=== PATIENT | female | born 1995 | race Caucasian/White ===

== ENCOUNTER 2017-06-22 03:40 | Emergency (ER) | payer SELFPAY ==
[2017-06-22 03:45] VITALS: BP 130/61
--- NOTE | 2017-06-22 04:23 | ER Document Report ---
ED ENT - General Chief Complaint: Ear Pain Stated Complaint: EAR PAIN Time Seen by Provider: 06/22/17 04:15 Notes: The patient is a 21-year-old female who presents with 3 days of left ear pain that feels like a throbbing sensation. She tried OTC swimmer's eardrops from [employer] without much relief of her symptoms. Patient is having mild drainage and worsening pain when she moves her left pinna. TRAVEL OUTSIDE OF THE [place] IN LAST 30 DAYS: No - Related Data Allergies/Adverse Reactions: No Known Allergies Allergy (Unverified 06/22/17 03:41) Past Medical History - General Information source: Patient - Social History Smoking Status: Unknown if Ever Smoked Family History: Reviewed & Not Pertinent Review of Systems - Review of Systems Constitutional: denies: Chills, Fever EENT: Ear pain. denies: Nose congestion, Sinus pressure Cardiovascular: denies: Chest pain, Palpitations Respiratory: denies: Cough, Short of breath Gastrointestinal: denies: Abdominal pain, Vomiting Physical Exam - Vital signs Vitals: Temp Pulse Resp BP Pulse Ox 98.5 F 106 H 20 130/61 H 99 06/22/17 03:42 06/22/17 03:42 06/22/17 03:42 06/22/17 03:42 06/22/17 03:42 - General General appearance: Appears well In distress: None - HEENT Ears: Pinna tenderness - left External canal: Swollen Tympanic membrane: Normal Sinus: Normal Nasal: Normal Mouth/Lips: Normal - Respiratory Respiratory status: No respiratory distress Breath sounds: Normal - Cardiovascular Rhythm: Regular Heart sounds: Normal auscultation - Neurological Neuro grossly intact: Yes - Skin Skin Temperature: Warm Course - Re-evaluation Re-evalutation: Patient with evidence of left otitis externa. No evidence of malignant otitis externa. Will begin ofloxacin drops, anti-inflammatories and have patient follow with her primary care physician and ENT as needed. - Vital Signs Vital signs: Temp Pulse Resp BP Pulse Ox 98.5 F 106 H 20 130/61 H 99 06/22/17 03:42 06/22/17 03:42 06/22/17 03:42 06/22/17 03:42 06/22/17 03:42 Discharge - Discharge Clinical Impression: Otitis externa Qualifiers: Otitis externa type: unspecified type Chronicity: acute Laterality: left Qualified Code(s): H60.502 - Unspecified acute noninfective otitis externa, left ear Condition: Stable Disposition: HOME, SELF-CARE Additional Instructions: Otitis Externa You have otitis externa -- an infection of the outer ear canal. This can be very painful. It's sometimes called "swimmer's ear," because it often occurs after prolonged water exposure. Many things, such as earwax and dirt in the ear, can contribute to it. The usual treatment is antibiotic/antiinflammatory ear drops. Occasionally , a wick will be placed in the ear to draw in the medicine. If the infection is severe, an oral antibiotic may be prescribed. Pain medication is often needed. Avoid getting water in the ear. Outer ear infections often take longer to heal than you might expect. Some tenderness and ache in the ear may persist for about two weeks. See your physician if you fail to improve as expected. Call the doctor at once if you develop fever, increasing swelling (particularly if it makes your ear "poke out"), severe headache, stiff neck, or decreased hearing. Prescriptions: Ofloxacin [Floxin] 10 drop LFT_EAR DAILY 7 Days drops Forms: Elevated Blood Pressure Referrals: ENT [Provider Group] - Follow up as needed
[2017-06-22] MEDS ORDERED: NAPROXEN 250 MG TABLET PO ONE (04:38)
== END 2017-06-22 04:59 | disposition home or self-care (01) ==
LOC: ER 03:40
DX: H60.502 Unspecified acute noninfective otitis externa, left ear (principal); H92.02 Otalgia, left ear
CPT/HCPCS: 99282